=== PATIENT | male | born 1940 ===

== ENCOUNTER 2021-08-14 12:25 | Outpatient (CLI) | payer OTHER ==
[~2021-08-14 12:25] MED LIST: DITROPAN XL5 MG PO; PYRIDIUM200 MG PO
== END 2021-08-14 12:34 | disposition home or self-care (01) ==
LOC: MRI 12:25
PROVIDERS: ATTEND Psychiatry & Neurology Neurology
DX: G93.89 Other specified disorders of brain (principal)
CPT/HCPCS: 70551

== ENCOUNTER 2022-12-24 15:05 | Outpatient (CLI) | payer OTHER | END 2022-12-24 15:13 | disposition home or self-care (01) | LOC: RAD 15:05 | PROVIDERS: ATTEND Otolaryngology | DX: S22.32XA Fracture of one rib, left side, initial encounter for closed fracture (principal) ==

== ENCOUNTER 2024-02-18 14:16 | Outpatient (CLI) | payer OTHER | END 2024-02-18 14:21 | disposition home or self-care (01) | LOC: RAD 14:16 | PROVIDERS: ATTEND Orthopaedic Surgery Hand Surgery | DX: R07.9 Chest pain, unspecified (principal) ==

== ENCOUNTER 2024-08-25 13:27 | Outpatient (CLI) | payer OTHER | END 2024-08-25 13:31 | disposition home or self-care (01) | LOC: RAD 13:27 | PROVIDERS: ATTEND Orthopaedic Surgery Hand Surgery | DX: M75.101 Unspecified rotator cuff tear or rupture of right shoulder, not specified as traumatic (principal) ==

== ENCOUNTER 2024-11-17 10:39 | Outpatient (CLI) | payer OTHER | END 2024-11-17 10:42 | disposition home or self-care (01) | LOC: RAD 10:39 | PROVIDERS: ATTEND Orthopaedic Surgery Adult Reconstructive Orthopaedic Surgery | DX: M17.11 Unilateral primary osteoarthritis, right knee (principal); Z96.652 Presence of left artificial knee joint ==

== ENCOUNTER 2025-09-14 10:43 | Outpatient (CLI) | payer OTHER | END 2025-09-14 10:44 | disposition home or self-care (01) | LOC: RAD 10:43 | PROVIDERS: ATTEND Orthopaedic Surgery Adult Reconstructive Orthopaedic Surgery | DX: M25.511 Pain in right shoulder (principal) ==